=== PATIENT | male | born 1985 | race Two or more races ===

== ENCOUNTER 2023-02-10 12:40 | Emergency (ER) | payer OTHER ==
[2023-02-10] MEDS: ceFAZolin 2 GM Vial ONE (13:46)
[2023-02-10] MEDS: ceFAZolin 2 GM in Sodium Chloride 0.9% 50 ML IV ONE (13:46)
[2023-02-10] MEDS: Lidocaine 1% 20 ML MDV INJECT ONE ×2 (13:49→13:51)
[2023-02-10] MEDS: Lidocaine 1% 20 ML MDV ONE (13:52)
[2023-02-10] MEDS: Diphtheria,Pertussis(Acell),Tetanus Vaccine 0.5 ML Syringe IM ONE (16:34)
== END 2023-02-10 17:20 | disposition home or self-care (01) ==
LOC: JD.ED 12:40
DX: S62.201A Unspecified fracture of first metacarpal bone, right hand, initial encounter for closed fracture (principal); S41.111A Laceration without foreign body of right upper arm, initial encounter; S66.821A Laceration of other specified muscles, fascia and tendons at wrist and hand level, right hand, initial encounter; S61.511A Laceration without foreign body of right wrist, initial encounter; Z23 Encounter for immunization; W22.8XXA Striking against or struck by other objects, initial encounter
CPT/HCPCS: 12007; 73130; 90471; 90715; 96365; 99283; J0690; J3490